=== PATIENT | female | born 1975 | race Caucasian/White ===

== ENCOUNTER → 2020-12-24 | Outpatient (CLI) | payer BC ==
[~2020-12-24] MED LIST: FLEXERIL PO; NAPROSYN500 MG PO; PREMARIN0.625 MG; SYNTHROID100 MCG; ZOLOFT 50 MG TA50 M1; ZYRTEC10 M2
== END ==
LOC: M.ULTRA 12:59
PROVIDERS: ATTEND Nurse Practitioner Family
DX: K76.0 Fatty (change of) liver, not elsewhere classified (principal); K80.80 Other cholelithiasis without obstruction; R16.1 Splenomegaly, not elsewhere classified